=== PATIENT | female | born 1995 | race Native Hawaiian/Other Pacific Islander ===

== ENCOUNTER 2018-01-10 21:43 | Emergency (ER) | payer SELFPAY ==
[2018-01-10 22:52] VITALS: BP 117/86; PULSE 74; RESP 18; TEMP 98.4; O2SAT 100
--- NOTE | 2018-01-10 22:57 | ED PDOC ---
HPI: Female Pain Time Seen by Provider: 01/10/18 22:55 Chief Complaint (Nursing): Female Genitourinary Chief Complaint (Provider): hematuria History Per: Patient Additional Complaint(s): 22-year-old female presents with dysuria and hematuria that started earlier this evening. Patient denies any known fever or chills, no nausea or vomiting. [place] Patient lives in [facility] and is currently visiting. Past Medical History Reviewed: Historical Data, Nursing Documentation, Vital Signs Vital Signs: Last Vital Signs Temp 98.4 F 01/10/18 22:50 Pulse 74 01/10/18 22:50 Resp 18 01/10/18 22:50 BP 117/86 01/10/18 22:50 Pulse Ox 100 01/10/18 22:50 - Medical History PMH: No Chronic Diseases - Surgical History Surgical History: No Surg Hx - Family History Family History: States: No Known Family Hx - Living Arrangements Living Arrangements: With Family - Social History Current smoker - smoking cessation education provided: No Alcohol: None Drugs: Denies - Home Medications Home Medications: Ambulatory Orders Medication Instructions Recorded Ciprofloxacin HCl [Cipro] 500 mg PO BID #14 tablet 01/10/18 - Allergies Allergies/Adverse Reactions: Allergies Allergy/AdvReac Type Severity Reaction Status Date / Time No Known Allergies Allergy Verified 01/10/18 22:50 Review of Systems ROS Statement: Except As Marked, All Systems Reviewed And Found Negative Constitutional: Negative for: Fever, Chills, Weakness Genitourinary Female: Positive for: Dysuria, Frequency, Hematuria Physical Exam - Reviewed Nursing Documentation Reviewed: Yes Vital Signs Reviewed: Yes - Physical Exam Appears: Positive for: Well, Non-toxic, No Acute Distress Skin: Positive for: Normal Color. Negative for: Rash Eye Exam: Positive for: Normal appearance Cardiovascular/Chest: Positive for: Regular Rate, Rhythm Respiratory: Positive for: Normal Breath Sounds Gastrointestinal/Abdominal: Positive for: Other (Mild suprapubic tenderness with no distention, guarding or rebound) Back: Negative for: L CVA Tenderness, R CVA Tenderness Extremity: Positive for: Normal ROM Neurologic/Psych: Positive for: Alert, Oriented - Laboratory Results Urine POC: Negative Urine dip results: Positive for: Leukocyte Esterase (large), Blood (large). Negative for: Nitrate, Ketones, Glucose, Bilirubin, Protein - ECG O2 Sat by Pulse Oximetry: 100 Pulse Ox Interpretation: Normal Medical Decision Making Medical Decision Makin22 year old with dysuria and hematuria Plan: Urine dip Urine test Urine culture UTI is noted. Patient given initial dose of Cipro in ED along with prescription for same. Advised fluids, rest and PMD follow-up in 2-3 days. Disposition - Clinical Impression Clinical Impression: Hemorrhagic cystitis - Patient ED Disposition Is Patient to be Admitted: No Counseled Patient/Family Regarding: Studies Performed, Diagnosis, Need For Followup, Rx Given - Disposition Referrals: [facility] [Outside] Disposition: Routine/Home Disposition Time: 23:34 Condition: STABLE Additional Instructions: Take prescription meds as directed to completion. Drink plenty of fluids. Follow -up with primary doctor in 2-3 days or return to emergency room any time if acutely worse. Prescriptions: Ciprofloxacin HCl [Cipro] 500 mg PO BID #14 tablet Instructions: Urinary Tract Infection, Adult (DC) Forms: [employer] ([place]ian)
== END 2018-01-11 00:06 | disposition home or self-care (01) ==
LOC: H.ER 21:43
DX: N30.91 Cystitis, unspecified with hematuria (principal)